=== PATIENT | male | born 1975 | race Two or more races ===

== ENCOUNTER 2024-03-22 16:31 | Emergency (ER) | payer SELFPAY ==
[2024-03-22 16:45] VITALS: BP 137/88; PULSE 87; RESP 18; TEMP 36.8; O2SAT 98; BMI 21.6
--- NOTE | 2024-03-22 16:45 | ED.GENADULT ---
HPI - General Adult General Chief complaint: General Medical Stated complaint: ?High Blood pressure Time Seen by Provider: 03/22/24 18:11 Related Data Previous Rx's ?Medication ?Instructions ?Recorded melatonin 3 mg capsule 3 mg PO BEDTIME 14 days #14 caps 03/22/24 Allergies Allergy/AdvReac Type Severity Reaction Status Date / Time No Known Allergies Allergy Verified 03/22/24 16:47 [facility] Social History Social History Advance Directives: No Advance Directives Information Provided: No Do you have a plan to hurt others: No Plan Physical Exam ED Vital Signs: Vital Signs - 24 hr 03/22/24 16:45 03/22/24 18:33 03/22/24 19:02 Temperature 98.2 F 97.1 F 97.1 F Pulse Rate 87 72 72 Respiratory Rate 18 16 16 Blood Pressure 137/88 112/86 112/86 Pulse Oximetry 98 98 98 Oxygen Delivery Method Room Air Room Air Room Air BMI result Body Mass Index 21.6 Course Course Course Narrative: RME performed by Lilly Colvin PA-C. Patient is a 48 year old assigned male at presenting to the emergency department feeling generally unwell. Patient states when he eats something he feels pressure going up into his head and he is unable to sleep. Detailed physical exam and review of systems are deferred to the psychology clinician. EKG, labs, and swabs ordered. Patient placed back in the waiting room pending room availability and results. Patient was dispositioned by Dr. Dwyer. Please refer to his note from the same visit date. Medical Decision Making Lab Data 03/22/24 17:03 03/22/24 17:03 Labs: Lab Results 03/22/24 03/22/24 Range/Units 17:03 17:35 WBC 6.4 (4.8-10.8) X10*3/uL RBC 4.68 (4.60-5.80) X10*6/uL Hgb 14.2 (14.0-18.0) g/dl Hct 38.7 L (42.0-52.0) % MCV 82.7 (80.0-98.0) fL MCH 30.3 (27.0-33.0) pg MCHC 36.7 H (31.0-36.0) g/dl RDW 11.6 (11.0-16.0) % Plt Count 178 (160-400) X10*3/uL MPV 11.1 (9.4-12.4) fL Immature Gran % (Auto) 0.2 (0.0-0.4) % Neut % (Auto) 49.5 (45-73) % Lymph % (Auto) 39.6 (20-40) % [place] % (Auto) 6.4 (2-11) % Eos % (Auto) 3.8 (0-4) % Baso % (Auto) 0.5 (0-2) % Lymph # (Auto) 2.5 (1.2-4.9) X10*3/uL [place] # (Auto) 0.4 (0.1-1.2) X10*3/uL Eos # (Auto) 0.2 (0.0-0.4) X10*3/uL Baso # (Auto) 0.0 (0.0-0.2) X10*3/uL Abs Immat Gran (auto) 0.01 (0.00-0.03) X10*3/uL Absolute Neuts (auto) 3.2 (2.0-8.3) x10*3/uL Absolute Nucleated RBC 0.000 (0.0-0.012) X10*3/uL Nucleated RBC % (auto) 0.0 (0.0-0.2) /100WBC Sodium 141 (135-145) mmol/L Potassium 3.5 (3.3-5.1) mmol/L Chloride 109 H (96-108) mmol/L Carbon Dioxide 24 (22-29) mmol/L Anion Gap 12 (12-20) BUN 18 H (9-16) mg/dL Creatinine 0.85 (0.5-1.4) mg/dL Estim Creat Clear Calc 107.8 Estimated GFR > 60 Random Glucose 121 H (60-115) mg/dL Calcium 9.1 (8.4-10.2) mg/dL Magnesium 2.0 (1.6-2.6) mg/dL Total Bilirubin 0.4 (0.0-1.0) mg/dL AST 21 (5-37) U/L ALT 25 (0-40) U/L Alkaline Phosphatase 66 (39-117) U/L Troponin I High Sens 2.9 (<3.5-35.0) ng/L Total Protein 7.3 (6.5-8.0) g/dL Albumin 4.1 (3.5-5.0) g/dL Urine Color Yellow Urine Appearance Clear Urine pH 6.5 (5.0-9.0) Ur Specific [place] >= 1.030 H (1.005-1.025) Urine Protein Negative (Neg-Trace) mg/dL Urine Glucose (UA) Negative (Negative) mg/dL Urine Ketones Negative (Negative) mg/dL Urine Blood Negative (Negative) Urine Nitrite Negative (Negative) Ur Leukocyte Esterase Negative (Negative) Influenza Type A (PCR) NEGATIVE (Negative) Influenza Type B (PCR) NEGATIVE (Negative) RSV RNA Qual (PCR) NEGATIVE (Negative) SARS-CoV-2 RNA (RT-PCR) NEGATIVE (Negative) Discharge Plan Discharge Clinical Impression: Fatigue Patient Disposition: Home, Self-Care Instructions: Fatigue (ED) Additional Instructions: You were seen and evaluated in the emergency room. Your vital signs were normal and he did not have fever. ? Your blood work blood cell counts, metabolic panel and urine testing more normal. This is negative for influenza, RSV and COVID-19. Your EKG was normal. You given a prescription medication to help you sleep at night. 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 Please follow-up with a primary care doctor in the next 1-2 weeks. Please call them to make an appointment. Please return to the emergency room if you develop any worsening symptoms including, but not limited to fever, chest pain or difficulty breathing. ? Prescriptions: New melatonin 3 mg capsule 3 mg PO BEDTIME 14 Days Qty: 14 0RF [facility] Interventions: ED Discharge Assessment Last Done: 03/22/24 19:02 Discharge Date/Time: 03/22/24 19:02 Print Language: Croatian
--- NOTE | 2024-03-22 16:46 | ECG_ITS ---
Test Reason : high bp Blood Pressure : / mmHG Vent. Rate : 083 BPM Atrial Rate : 083 BPM P-R Int : 160 ms QRS Dur : 090 ms QT Int : 368 ms P-R-T Axes : 056 -07 043 degrees QTc Int : 432 ms Normal sinus rhythm Normal ECG No previous ECGs available Referred By: Lilly Colvin Electronically Signed By:Nolan Gongora
[2024-03-22 17:07] LABS: MANUAL DIFF FLAG NO
[2024-03-22 17:08] LABS: Basophils Percent Auto 0.5 % (0-2); Eosinophils Absolute Auto 0.2 X10*3/uL (0.0-0.4); Eosinophils Percent Auto 3.8 % (0-4); Hematocrit 38.7 % (42.0-52.0); Hemoglobin 14.2 g/dl (14.0-18.0); Imm Gran Abs Auto 0.01 X10*3/uL (0.00-0.03); Imm Gran Pct Auto 0.2 % (0.0-0.4); Lymphocytes Absolute Auto 2.5 X10*3/uL (1.2-4.9); Lymphocytes Percent Auto 39.6 % (20-40); Mean Corpuscular HGB Conc 36.7 g/dl (31.0-36.0); Mean Corpuscular Hemoglobin 30.3 pg (27.0-33.0); Mean Corpuscular Volume 82.7 fL (80.0-98.0); Mean Platelet Volume 11.1 fL (9.4-12.4); Monocytes Absolute Auto 0.4 X10*3/uL (0.1-1.2); Monocytes Percent Auto 6.4 % (2-11); Neutrophils Absolute Auto 3.2 x10*3/uL (2.0-8.3); Neutrophils Percent Auto 49.5 % (45-73); Platelet Count 178 X10*3/uL (160-400); Red Blood Count 4.68 X10*6/uL (4.60-5.80); Red Cell Distribution Width 11.6 % (11.0-16.0); White Blood Count 6.4 X10*3/uL (4.8-10.8)
[2024-03-22 17:30] LABS: Alanine Aminotransferase 25 U/L (0-40); Albumin Level 4.1 g/dL (3.5-5.0); Alkaline Phosphatase 66 U/L (39-117); Anion Gap 12 (12-20); Aspartate Amino Transferase 21 U/L (5-37); Bilirubin Total 0.4 mg/dL (0.0-1.0); Blood Urea Nitrogen 18 mg/dL (9-16); Calcium 9.1 mg/dL (8.4-10.2); Carbon Dioxide 24 mmol/L (22-29); Chloride 109 mmol/L (96-108); Creatinine Clr Calc Pharmacy 107.8; Estimated Glomerular Filt Rate > 60; Glucose Random 121 mg/dL (60-115); Potassium 3.5 mmol/L (3.3-5.1); Sodium 141 mmol/L (135-145); Total Protein 7.3 g/dL (6.5-8.0)
[2024-03-22 17:37] LABS: Troponin-I High Sensitivity 2.9 ng/L (<3.5-35.0)
[2024-03-22 17:41] LABS: Appearance Urine Clear; Color Urine Yellow; Glucose Urine UA Negative (Negative); Leukocyte Esterase Urine Negative (Negative); Nitrite Urine Negative (Negative); PH 6.5 (5.0-9.0); Specific Gravity - Urine >= 1.030 (1.005-1.025); Urine Blood Negative (Negative); Urine Ketones Negative (Negative); Urine Protein Negative (Neg-Trace)
[2024-03-22 17:52] LABS: Influenza A PCR NEGATIVE (Negative); Influenza B PCR NEGATIVE (Negative); Resp Syncy Virus RNA Qual PCR NEGATIVE (Negative); SARS COV2 PCR INHOUSE NEGATIVE (Negative)
--- NOTE | 2024-03-22 18:19 | ED.GENADULT ---
HPI - General Adult General Chief complaint: General Medical Stated complaint: ?High Blood pressure Time Seen by Provider: 03/22/24 18:11 Source: patient Mode of arrival: ambulatory Limitations: no limitations History of Present Illness HPI narrative: This is a 48yom with no reported pmhx who presents for evaluation. He states he is visiting a friend from [facility]. He states that he has been here for couple of months. He states that he plans to stay for another month or so. He states that he has been feeling tired for the last few days. He states difficulty sleeping at night. He states no fevers, chills, headache, neck pain, vision changes, hearing changes, speech changes, difficulty swallowing, chest pain, back pain, abdominal pain, nausea, vomiting, diarrhea, melena, hematochezia, hematuria, dysuria or urinary frequency/urgency. He states no recreational or illicit drug use. He states drinking alcohol over with the weekends. He states no trauma. He states no other complaints. Related Data Previous Rx's ?Medication ?Instructions ?Recorded melatonin 3 mg capsule 3 mg PO BEDTIME 14 days #14 caps 03/22/24 Allergies Allergy/AdvReac Type Severity Reaction Status Date / Time No Known Allergies Allergy Verified 03/22/24 16:47 Review of Systems Review of Systems: ROS as per [facility] Social History Social History Advance Directives: No Advance Directives Information Provided: No Do you have a plan to hurt others: No Plan Physical Exam ED Vital Signs: Vital Signs - 24 hr 03/22/24 16:45 Temperature 98.2 F Pulse Rate 87 Respiratory Rate 18 Blood Pressure 137/88 Pulse Oximetry 98 Oxygen Delivery Method Room Air BMI result Body Mass Index 21.6 Gen: NAD, AOx3 HEENT: NCAT, EOMI, normal conjunctiva CV: RRR Pulm: CTAB, no increased work of breathing GI: Soft, NTND, no rebound, guarding or rigidity Neuro: Grossly non focal Medical Decision Making Medical Decision Making MDM Narrative: Differential diagnosis includes, but is not limited to anemia, viral syndrome, dehydration, electrolyte derangement. Patient is afebrile and hemodynamically stable on room air. Exam is benign and reassuring. I reviewed and interpreted labs, which are noncontributory. I reviewed and interpreted EKG, which is unremarkable for any acute findings. Urinalysis unremarkable. Patient has negative for COVID-19, influenza and RSV. On re-examination, patient is well-appearing and in no acute distress. ?Patient states symptoms have resolved. ?There is no indication for further emergent evaluation in this otherwise well-appearing patient as above. ?Patient is provided written and verbal instructions, educational materials, recommendations for outpatient follow-up, prescription for melatonin, strict return precautions and teach back is performed. ?Patient states understanding and agreement with plan of care. ?Patient is discharged home in stable and improved condition. Admission/Observation Consideration of admission/observation: Escalation of care including admission/observation considered Lab Data MDM Lab Attestation statement: I reviewed the patient's lab results. 03/22/24 17:03 03/22/24 17:03 Labs: Lab Results 03/22/24 03/22/24 Range/Units 17:03 17:35 WBC 6.4 (4.8-10.8) X10*3/uL RBC 4.68 (4.60-5.80) X10*6/uL Hgb 14.2 (14.0-18.0) g/dl Hct 38.7 L (42.0-52.0) % MCV 82.7 (80.0-98.0) fL MCH 30.3 (27.0-33.0) pg MCHC 36.7 H (31.0-36.0) g/dl RDW 11.6 (11.0-16.0) % Plt Count 178 (160-400) X10*3/uL MPV 11.1 (9.4-12.4) fL Immature Gran % (Auto) 0.2 (0.0-0.4) % Neut % (Auto) 49.5 (45-73) % Lymph % (Auto) 39.6 (20-40) % [place] % (Auto) 6.4 (2-11) % Eos % (Auto) 3.8 (0-4) % Baso % (Auto) 0.5 (0-2) % Lymph # (Auto) 2.5 (1.2-4.9) X10*3/uL [place] # (Auto) 0.4 (0.1-1.2) X10*3/uL Eos # (Auto) 0.2 (0.0-0.4) X10*3/uL Baso # (Auto) 0.0 (0.0-0.2) X10*3/uL Abs Immat Gran (auto) 0.01 (0.00-0.03) X10*3/uL Absolute Neuts (auto) 3.2 (2.0-8.3) x10*3/uL Absolute Nucleated RBC 0.000 (0.0-0.012) X10*3/uL Nucleated RBC % (auto) 0.0 (0.0-0.2) /100WBC Sodium 141 (135-145) mmol/L Potassium 3.5 (3.3-5.1) mmol/L Chloride 109 H (96-108) mmol/L Carbon Dioxide 24 (22-29) mmol/L Anion Gap 12 (12-20) BUN 18 H (9-16) mg/dL Creatinine 0.85 (0.5-1.4) mg/dL Estim Creat Clear Calc 107.8 Estimated GFR > 60 Random Glucose 121 H (60-115) mg/dL Calcium 9.1 (8.4-10.2) mg/dL Magnesium 2.0 (1.6-2.6) mg/dL Total Bilirubin 0.4 (0.0-1.0) mg/dL AST 21 (5-37) U/L ALT 25 (0-40) U/L Alkaline Phosphatase 66 (39-117) U/L Troponin I High Sens 2.9 (<3.5-35.0) ng/L Total Protein 7.3 (6.5-8.0) g/dL Albumin 4.1 (3.5-5.0) g/dL Urine Color Yellow Urine Appearance Clear Urine pH 6.5 (5.0-9.0) Ur Specific [place] >= 1.030 H (1.005-1.025) Urine Protein Negative (Neg-Trace) mg/dL Urine Glucose (UA) Negative (Negative) mg/dL Urine Ketones Negative (Negative) mg/dL Urine Blood Negative (Negative) Urine Nitrite Negative (Negative) Ur Leukocyte Esterase Negative (Negative) Influenza Type A (PCR) NEGATIVE (Negative) Influenza Type B (PCR) NEGATIVE (Negative) RSV RNA Qual (PCR) NEGATIVE (Negative) SARS-CoV-2 RNA (RT-PCR) NEGATIVE (Negative) Independent Interpretation I performed an independent interpretation of an: EKG Interpretation: Normal sinus rhythm at 83 beats per minute, DC 160, QRS 90, QTC 432, no ST depression/elevations, no STEMI (no previous EKG for comparison) Discharge Plan Discharge Clinical Impression: Fatigue Patient Disposition: Home, Self-Care Instructions: Fatigue (ED) Additional Instructions: You were seen and evaluated in the emergency room. Your vital signs were normal and he did not have fever. ? Your blood work blood cell counts, metabolic panel and urine testing more normal. This is negative for influenza, RSV and COVID-19. Your EKG was normal. You given a prescription medication to help you sleep at night. 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 Please follow-up with a primary care doctor in the next 1-2 weeks. Please call them to make an appointment. Please return to the emergency room if you develop any worsening symptoms including, but not limited to fever, chest pain or difficulty breathing. ? Prescriptions: New melatonin 3 mg capsule 3 mg PO BEDTIME 14 Days Qty: 14 0RF [place] [facility] [place] [facility] Print Language: Surinamese
[2024-03-22 18:33] VITALS: BP 112/86; PULSE 72; RESP 16; TEMP 36.2; O2SAT 98
[2024-03-22 19:02] VITALS: BP 112/86; PULSE 72; RESP 16; TEMP 36.2; O2SAT 98
== END 2024-03-22 19:02 | disposition home or self-care (01) ==
PROVIDERS: Physician Assistant Medical; Emergency Provider Emergency Medicine
DX: R53.83 Other fatigue (principal); R03.0 Elevated blood-pressure reading, without diagnosis of hypertension; Z03.818 Encounter for observation for suspected exposure to other biological agents ruled out; Z79.899 Other long term (current) drug therapy
CPT/HCPCS: 0241U; 36415; 80053; 81003; 83735; 84484; 85025; 93005; 99283; 99284

== ENCOUNTER → 2024-03-22 16:46 | Outpatient (BNV) | payer SELFPAY | PROVIDERS: Emergency Provider Emergency Medicine; Visit Provider Internal Medicine Cardiovascular Disease | DX: R53.83 Other fatigue (principal) | CPT/HCPCS: 93010 ==